=== PATIENT | female | born 1990 | race Caucasian/White ===

== ENCOUNTER 2016-11-15 17:17 | Outpatient (CLI) | payer BC ==
[~2016-11-15 17:17] MED LIST: ENDOCET 5-3251 EACH PO; FENUGREEK500 MG PO; IBUPROFEN800 MG PO; KEFLEX500 MG PO; LABETALOL HCL100 MG PO; LABETALOL HCL200 MG PO; PERCOCET 5/31 TABLET PO; PRENATAL TABLE1 EAC3 PO; PROVENTIL,2.5 MG/0.5 AEROSOL; REGLAN10 MG PO; TORADOL10 MG PO; TYLENOL EXTRA500 MG PO; ZANTAC150 MG PO; ZITHROMAX Z-PA250 MG PO; ZOFRAN4 MG PO; ZOFRAN8 MG PO
[2016-11-15 19:37] VITALS: BP 140/82
[2016-11-15 19:40] LABS: EOSINOPHIL (%) 0.6 % (0-5); EOSINOPHIL COUNT 0.1 K/uL (0-0.3); HEMATOCRIT 30.9 % (36.0-46.0); IMMATURE GRANULOCYTE (%) 0.9 % (0.0-0.7); IMMATURE GRANULOCYTE COUNT 0.1 K/uL; INSTRUMENT ABS NEUTROPHIL CT 9.2 K/uL; LYMPHOCYTE COUNT 1.3 K/uL (1.0-2.8); MCH 27.6 PG (29.0-34.0); MCHC 34.3 G/DL (30.0-36.0); MCV 80.5 FL (83-99); MEAN PLAT.VOLUME 9.5 uM^3 (9.5-12.4); MONOCYTE (%) 4.6 % (3-12); MONOCYTE COUNT 0.5 K/uL (0-0.8); NEUTROPHIL COUNT 9.2 K/uL (1.8-6.4); PLATELET COUNT 218 K/uL (156-360); RBC DIS.WIDTH-CV 15.5 % (11.8-14.6); RBC DIS.WIDTH-SD 45.1 % (39-53); RED BLOOD COUNT 3.84 M/uL (3.80-5.20); WHITE BLOOD COUNT 11.2 K/uL (4.1-10.2)
[2016-11-15 19:59] LABS: ALKALINE PHOSPHATASE 68 IU/L (3-129); ANION GAP 10 MEQ/L (2-14); CHLORIDE 105 MEQ/L (99-109); GFR ESTIMATE (CALCULATED) > 59 mL/min/; GLUCOSE 77 mg/dL (70-99); POTASSIUM 3.8 MEQ/L (3.7-5.4); SAMPLE HEMOLYSIS CHECK 0; SAMPLE ICTERIC CHECK 0; SAMPLE LIPEMIA CHECK 0; SODIUM 137 MEQ/L (136-147); TOTAL BILIRUBIN 0.7 MG/DL (0.0-1.0); UREA NITROGEN (BUN) 7 mg/dL (9-23)
== END 2016-11-15 21:17 | disposition home or self-care (01) ==
LOC: LDRP-OP 17:17 → 2WEST 17:18 → LDRP-OP 03-07 10:50
PROVIDERS: Obstetrics & Gynecology
DX: O99.352 Diseases of the nervous system complicating pregnancy, second trimester (principal); G51.0 Bell's palsy; Z3A.26 26 weeks gestation of pregnancy; O13.2 Gestational [pregnancy-induced] hypertension without significant proteinuria, second trimester
CPT/HCPCS: 59025; 80053; 82570; 84156; 85025; G0378; J7512

== ENCOUNTER 2017-01-07 21:48 | Outpatient (CLI) | payer BC ==
[2017-01-07 22:40] VITALS: BP 130/83
[2017-01-07] MEDS ORDERED: ASPIR 8181 M1 PO (22:47)
[2017-01-07] MEDS ORDERED: LABETALOL HCL200 MG PO (22:47)
[2017-01-07] MEDS ORDERED: CLARITIN10 M3 PO (22:47)
[2017-01-07] MEDS ORDERED: IRON 100 PLUS1 EACH PO (22:47)
[2017-01-07] MEDS ORDERED: ZOFRAN8 MG PO (22:48)
== END 2017-01-07 23:55 | disposition home or self-care (01) ==
LOC: LDRP-OP 21:48 → 2WEST 21:49 → LDRP-OP 03-19 21:39
DX: O36.8130 Decreased fetal movements, third trimester, not applicable or unspecified (principal); O13.2 Gestational [pregnancy-induced] hypertension without significant proteinuria, second trimester; Z3A.34 34 weeks gestation of pregnancy; R51 Headache
CPT/HCPCS: 59025; G0378

== ENCOUNTER 2017-02-03 08:34 | Inpatient (IN) | payer BC ==
[~2017-02-03] VITALS: Ht 160 cm; Wt 97.0 kg
[2017-02-03] VITALS (8 sets, daily range): BP systolic 120–140; BP diastolic 61–88
[~2017-02-03 08:34] MED LIST changes: +ASPIR 8181 M1 PO; +CLARITIN10 M3 PO; +IRON325 M1 PO
[2017-02-03 09:54] LABS: EOSINOPHIL (%) 0.5 % (0-5); EOSINOPHIL COUNT 0.1 K/uL (0-0.3); HEMATOCRIT 33.3 % (36.0-46.0); IMMATURE GRANULOCYTE (%) 0.4 % (0.0-0.7); INSTRUMENT ABS NEUTROPHIL CT 7.9 K/uL; LYMPHOCYTE COUNT 1.1 K/uL (1.0-2.8); MCH 24.8 PG (29.0-34.0); MCHC 31.8 G/DL (30.0-36.0); MCV 77.8 FL (83-99); MEAN PLAT.VOLUME 10.4 uM^3 (9.5-12.4); MONOCYTE COUNT 0.6 K/uL (0-0.8); NEUTROPHIL (%) 81.2 % (45-76); NEUTROPHIL COUNT 7.9 K/uL (1.8-6.4); PLATELET COUNT 274 K/uL (156-360); RBC DIS.WIDTH-CV 16.1 % (11.8-14.6); RBC DIS.WIDTH-SD 45.6 % (39-53); RED BLOOD COUNT 4.28 M/uL (3.80-5.20); WHITE BLOOD COUNT 9.7 K/uL (4.1-10.2)
[2017-02-04 02:55] VITALS: BP 116/60
[2017-02-04 03:39] LABS: EOSINOPHIL (%) 0.1 % (0-5); IMMATURE GRANULOCYTE (%) 0.4 % (0.0-0.7); INSTRUMENT ABS NEUTROPHIL CT 7.1 K/uL; LYMPHOCYTE COUNT 1.1 K/uL (1.0-2.8); MCH 24.7 PG (29.0-34.0); MCHC 31.1 G/DL (30.0-36.0); MCV 79.5 FL (83-99); MEAN PLAT.VOLUME 9.6 uM^3 (9.5-12.4); MONOCYTE (%) 7.7 % (3-12); MONOCYTE COUNT 0.7 K/uL (0-0.8); NEUTROPHIL (%) 79.3 % (45-76); NEUTROPHIL COUNT 7.1 K/uL (1.8-6.4); PLATELET COUNT 224 K/uL (156-360); RBC DIS.WIDTH-CV 16.1 % (11.8-14.6); RBC DIS.WIDTH-SD 46.3 % (39-53); RED BLOOD COUNT 3.52 M/uL (3.80-5.20)
[2017-02-04 07:03] VITALS: BP 133/60
[2017-02-04 10:43] VITALS: BP 134/32; BP 134/62
[2017-02-04 14:49] VITALS: BP 146/78
[2017-02-04 18:57] VITALS: BP 138/84
[2017-02-04 22:22] VITALS: BP 136/75
[2017-02-05 02:50] VITALS: BP 125/76
[2017-02-05 07:18] VITALS: BP 136/79
[2017-02-05] MEDS ORDERED: ENDOCET 5-3251 EACH PO (13:07)
== END 2017-02-05 14:20 | disposition home or self-care (01) | DRG 765 ==
LOC: 2SOUTH 08:34 → 2WEST 08:57 → 2SOUTH 11:41 → 2WEST 02-05 14:20 → 2SOUTH 02-06 11:40
PROVIDERS: Obstetrics & Gynecology
PROC: 10D00Z1 Extraction of Products of Conception, Low, Open Approach (ICD-10-PCS; principal; 2017-02-03)
DX: O13.4 Gestational [pregnancy-induced] hypertension without significant proteinuria, complicating childbirth (principal); O34.211 Maternal care for low transverse scar from previous cesarean delivery; E66.9 Obesity, unspecified; O99.214 Obesity complicating childbirth; Z68.37 Body mass index [BMI] 37.0-37.9, adult; Z37.0 Single live birth; O99.02 Anemia complicating childbirth; D62 Acute posthemorrhagic anemia; Z3A.38 38 weeks gestation of pregnancy; M41.9 Scoliosis, unspecified; J45.909 Unspecified asthma, uncomplicated; O99.52 Diseases of the respiratory system complicating childbirth; O75.89 Other specified complications of labor and delivery; O69.81X0 Labor and delivery complicated by cord around neck, without compression, not applicable or unspecified
CPT/HCPCS: 85025; 85025 91; 86850; 86900; 86901; 88307; 93005; J0690; J1100; J2274; J2405; J2550; J2765; J7120